=== PATIENT | female | born 1975 | race Caucasian/White ===

== ENCOUNTER 2017-06-13 08:47 | Day surgery (SDC) | payer OTHER ==
[~2017-06-13] VITALS: Ht 162.6 cm; Wt 99.5 kg
[~2017-06-13 08:47] MED LIST: ACEBUTCAFT PO; ACYC400 PO; BENZ100A; BENZ100A PO; BIRTH CONTROL PILLS; CEPH500 PO; Cheratussin AC118 ML; DRON5 PO; GUAI600T33 PO; HYDACE5 PO; IBUP400 PO; LEVFLO500 PO; LORA1 PO; MULVITMINE PO; OMEP10ER; OMEP40CA12 PO; ONDA8 PO; OXYACE5T PO; SERT25 PO; SULTRIDS PO; TRAZ50 PO; VITAMIN D2000 UNIT PO; VITAMIN D22000 UNIT PO
[2017-06-13] MEDS ORDERED: ESOM20 (09:22)
[2018-02-13] MEDS ORDERED: IBUP600 PO (23:58)
[2018-02-13] MEDS ORDERED: Norco 5-325 Ta1 EACH PO (23:58)
== END 2017-06-13 11:15 | disposition home or self-care (01) ==
LOC: ORSCSDS 08:47
PROVIDERS: Orthopaedic Surgery
PROC: 01N54ZZ Release Median Nerve, Percutaneous Endoscopic Approach (ICD-10-PCS; principal; 2017-06-13 10:00)
DX: G56.02 Carpal tunnel syndrome, left upper limb (principal)
CPT/HCPCS: J0171; J0690; J2250

== ENCOUNTER → 2018-12-09 | Outpatient (CLI) | payer OTHER ==
[~2018-12-09] MED LIST changes: +ESOM20; +IBUP600 PO; +Norco 5-325 Ta1 EACH PO
== END ==
LOC: LAB 13:58 → LAB SHORT 13:58
PROVIDERS: Nurse Practitioner
DX: Z01.419 Encounter for gynecological examination (general) (routine) without abnormal findings (principal)
CPT/HCPCS: G0145

== ENCOUNTER → 2019-05-06 | Outpatient (CLI) | payer OTHER ==
[2019-05-06 09:02] LABS: Source, Urine Clean Catch
[2019-05-06 09:07] LABS: BASOPHILS ABSOLUTE AUTO 0.04 K/mm3 (0.00-0.23); BASOPHILS PERCENT AUTO 1 % (0-2); EOSINOPHILS ABSOLUTE AUTO 0.08 K/mm3 (0.00-0.68); EOSINOPHILS PERCENT AUTO 1 % (0-6); Hematocrit 37.8 % (33.0-51.0); Hemoglobin 12.2 g/dL (11.5-16.0); IMMATURE GRAN ABSOLUTE AUTO 0.02 K/mm3 (0.00-0.10); IMMATURE GRAN PERCENT AUTO 0 % (0-1); LYMPHOCYTES ABSOLUTE AUTO 2.49 K/mm3 (0.84-5.20); LYMPHOCYTES PERCENT AUTO 36 % (21-46); MONOCYTES ABSOLUTE AUTO 0.54 K/mm3 (0.16-1.47); MONOCYTES PERCENT AUTO 8 % (4-13); Mean Corpuscular HGB 26.3 pg (26.0-34.0); Mean Corpuscular HGB Conc 32.3 g/dL (31.5-36.5); Mean Corpuscular Volume 82 fL (80-100); Mean Platelet Volume 9.8 fL (9.1-12.4); NEUTROPHILS PERCENT AUTO 55 % (41-73); Platelet Count 280 K/mm3 (150-400); RDW Coefficient Variation 15.9 % (11.7-14.2); RDW Standard Deviation 46.5 fL (35.1-46.3); Red Blood Cell Count 4.64 M/mm3 (3.80-5.20); White Blood Cell Count 6.97 K/mm3 (4.00-11.30)
[2019-05-06 09:16] LABS: Alanine Aminotransfer (ALT/SGP 38 U/L (12-78); Albumin, Blood 3.9 g/dL (3.4-5.0); Albumin/Globulin Ratio 0.9 (0.8-1.8); Alk Phos 114 U/L (40-126); Anion Gap 12 mmol/L (6-16); Aspartate Aminotrans (AST/SGOT 31 U/L (12-37); Bilirubin, Total 0.4 mg/dL (0.1-1.0); Blood Urea Nitrogen 14 mg/dL (8-24); Bun/Creatinine Ratio 17.5 (12.0-20.0); CO2, Blood 27 mmol/L (21-32); Chloride, Blood 101 mmol/L (98-108); Globulin, Blood 4.2 g/dL (2.2-4.0); Glomerular Filtration Rate >60 (60-); Glucose, Blood 111 mg/dL (70-99); Potassium, Blood 3.7 mmol/L (3.5-5.5); Sodium, Blood 140 mmol/L (136-145); Total Protein, Blood 8.1 g/dL (6.4-8.2)
[2019-05-06 09:28] LABS: Bacteria Mod /hpf; Red Blood Cells, Urine TNTC /hpf (0-2); Squamous Epithelial Cells Many /hpf (Few)
== END | disposition home or self-care (01) ==
LOC: LAB EV 08:59 → LAB SHORT 08:59
PROVIDERS: Physician Assistant
DX: R50.9 Fever, unspecified (principal)
CPT/HCPCS: 80053; 81015; 85025; 87040; 87086

== ENCOUNTER 2020-03-11 20:53 | Emergency (ER) | payer MEDICARE, OTHER ==
[~2020-03-11] VITALS: Ht 165.1 cm; Wt 97.5 kg
[2020-03-11 22:18] LABS: BASOPHILS ABSOLUTE AUTO 0.03 K/mm3 (0.00-0.23); BASOPHILS PERCENT AUTO 0 % (0-2); EOSINOPHILS ABSOLUTE AUTO 0.07 K/mm3 (0.00-0.68); EOSINOPHILS PERCENT AUTO 1 % (0-6); Hematocrit 39.2 % (33.0-51.0); Hemoglobin 12.4 g/dL (11.5-16.0); IMMATURE GRAN ABSOLUTE AUTO 0.04 K/mm3 (0.00-0.10); IMMATURE GRAN PERCENT AUTO 0 % (0-1); LYMPHOCYTES ABSOLUTE AUTO 2.95 K/mm3 (0.84-5.20); LYMPHOCYTES PERCENT AUTO 27 % (21-46); MONOCYTES ABSOLUTE AUTO 1.04 K/mm3 (0.16-1.47); MONOCYTES PERCENT AUTO 9 % (4-13); Mean Corpuscular HGB 25.6 pg (26.0-34.0); Mean Corpuscular HGB Conc 31.6 g/dL (31.5-36.5); Mean Corpuscular Volume 81 fL (80-100); Mean Platelet Volume 9.5 fL (9.1-12.4); NEUTROPHILS ABSOLUTE AUTO 6.99 K/mm3 (1.96-9.15); NEUTROPHILS PERCENT AUTO 63 % (41-73); Platelet Count 307 K/mm3 (150-400); RDW Coefficient Variation 14.6 % (11.7-14.2); RDW Standard Deviation 42.6 fL (35.1-46.3); Red Blood Cell Count 4.85 M/mm3 (3.80-5.20); White Blood Cell Count 11.12 K/mm3 (4.00-11.30)
[2020-03-11 22:40] LABS: Albumin, Blood 3.9 g/dL (3.4-5.0); Albumin/Globulin Ratio 0.9 (0.8-1.8); Bilirubin, Total 0.3 mg/dL (0.1-1.0); Bun/Creatinine Ratio 15.7 (12.0-20.0); Creatinine, Blood 1.15 mg/dL (0.40-1.00); Globulin, Blood 4.3 g/dL (2.2-4.0); Potassium, Blood 3.6 mmol/L (3.5-5.5); Total Protein, Blood 8.2 g/dL (6.4-8.2)
[2020-03-12] MEDS ORDERED: Percocet 5-3251 EACH PO (00:56)
== END 2020-03-12 01:05 | disposition home or self-care (01) ==
LOC: ER 20:53
PROVIDERS: Physician Assistant
DX: N20.0 Calculus of kidney (principal); Z88.8 Allergy status to other drugs, medicaments and biological substances; Z91.09 Other allergy status, other than to drugs and biological substances; Z91.018 Allergy to other foods; Z79.899 Other long term (current) drug therapy; Z87.891 Personal history of nicotine dependence
CPT/HCPCS: 36415; 80053; 85025; 96374; 96375; 99284-25; A9270; J1885; J2405

== ENCOUNTER → 2020-06-10 | Outpatient (CLI) | payer MEDICARE, OTHER ==
[~2020-06-10] MED LIST changes: +Percocet 5-3251 EACH PO
[2020-06-22 19:06] LABS: BRUSHITE 2.79 ratio (0.00-3.00); CALCIUM OXALATE 11.32 ratio (0.00-6.00); CALCIUM, URINE 31.7 mg/dL (Not Estab.); CHLORIDE URINE 194 (110-250); CITRIC ACID (CITRATE) 402 mg/L (Not Estab.); CITRIC ACID(CITRATE) 402 mg/24 hr (320-1240); MAGNESIUM, URINE 7.3 mg/dL (Not Estab.); MONOSODIUM URATE 5.73 ratio (0.00-4.00); OSMOLALITY, URINE 872 (300-900); SODIUM, URINE 171 (39-258); SODIUM, URINE 171 mmol/L (Not Estab.); STRUVITE 0.01 ratio (0.00-1.00); URINE VOLUME 1000 mL/24 hr (600-1600); URINE VOLUME (PRESERVATIVE) 1000 mL/24 hr (600-1600)
== END ==
LOC: LAB SHORT 10:00 → LAB 10:00 → LAB FUT 05-30 11:15
PROVIDERS: Urology
DX: N20.2 Calculus of kidney with calculus of ureter (principal)
CPT/HCPCS: 81003; 81050; 82131; 82140; 82340; 82436; 82507; 82570; 83735; 83935; 83945; 84105; 84133; 84300; 84392; 84560

== ENCOUNTER → 2021-08-17 | Outpatient (CLI) | payer MEDICARE, OTHER ==
[2021-08-18 16:11] LABS: HPV 16 Negative (Negative); HPV 18 Negative (Negative); HPV OTHER HR TYPES Negative (Negative)
== END | disposition home or self-care (01) ==
LOC: LAB SHORT 11:44 → LAB 11:44
PROVIDERS: Advanced Practice Midwife
DX: Z01.419 Encounter for gynecological examination (general) (routine) without abnormal findings (principal)
CPT/HCPCS: 87624; G0123

== ENCOUNTER 2021-08-21 13:29 | Emergency (ER) | payer OTHER, MEDICARE ==
[~2021-08-21] VITALS: Ht 162.6 cm; Wt 101.2 kg
[2021-08-21] MEDS ORDERED: IBUP600 PO (14:59)
== END 2021-08-21 15:11 | disposition home or self-care (01) ==
LOC: ER 13:29
DX: S63.286A Dislocation of proximal interphalangeal joint of right little finger, initial encounter (principal); Y33.XXXA Other specified events, undetermined intent, initial encounter; Z88.8 Allergy status to other drugs, medicaments and biological substances; Z91.018 Allergy to other foods; Z91.048 Other nonmedicinal substance allergy status; Z79.899 Other long term (current) drug therapy
CPT/HCPCS: 73130

== ENCOUNTER 2024-04-21 19:40 | Inpatient (IN) | payer MEDICARE, OTHER ==
[~2024-04-21] VITALS: Ht 162.6 cm; Wt 103.7 kg
[2024-04-21] MEDS ORDERED: Ketorolac Tromethamine 30mg Vial IV ONE (21:05)
[2024-04-21] MEDS ORDERED: NS 1,000 ML IV SCH (21:05)
[2024-04-21] MEDS ORDERED: Acetaminophen 500 MG Tab PO ONE (21:05)
[2024-04-21 21:31] LABS: BASOPHILS ABSOLUTE AUTO 0.02 K/mm3 (0.00-0.23); BASOPHILS PERCENT AUTO 0 % (0-2); EOSINOPHILS PERCENT AUTO 0 % (0-6); Hematocrit 34.9 % (33.0-51.0); Hemoglobin 11.4 g/dL (11.5-16.0); IMMATURE GRAN ABSOLUTE AUTO 0.05 K/mm3 (0.00-0.10); IMMATURE GRAN PERCENT AUTO 1 % (0-1); LYMPHOCYTES ABSOLUTE AUTO 0.36 K/mm3 (0.84-5.20); LYMPHOCYTES PERCENT AUTO 5 % (21-46); MONOCYTES ABSOLUTE AUTO 0.75 K/mm3 (0.16-1.47); MONOCYTES PERCENT AUTO 10 % (4-13); Mean Corpuscular HGB 27.1 pg (26.0-34.0); Mean Corpuscular HGB Conc 32.7 g/dL (31.5-36.5); Mean Corpuscular Volume 83 fL (80-100); Mean Platelet Volume 9.5 fL (9.1-12.4); NEUTROPHILS ABSOLUTE AUTO 6.38 K/mm3 (1.96-9.15); NEUTROPHILS PERCENT AUTO 84 % (41-73); Platelet Count 217 K/mm3 (150-400); RDW Standard Deviation 42.9 fL (35.1-46.3); Red Blood Cell Count 4.21 M/mm3 (3.80-5.20); White Blood Cell Count 7.56 K/mm3 (4.00-11.30)
[2024-04-21 21:57] LABS: Calcium, Blood 8.8 mg/dL (8.5-10.1); Creatinine, Blood 0.79 mg/dL (0.40-1.00); Potassium, Blood 3.5 mmol/L (3.5-5.5)
[2024-04-21] MEDS ORDERED: Melatonin 5 MG Tablet PO PRN (23:45)
[2024-04-21] MEDS ORDERED: Acetaminophen 325 MG TABLET PO PRN (23:45)
[2024-04-21] MEDS ORDERED: Albuterol 2.5 MG/3 ML VIAL INH PRN (23:45)
[2024-04-21] MEDS ORDERED: Ondansetron HCl 2 MG / ML 2ML Vial IV PRN (23:45)
[2024-04-21] MEDS ORDERED: FLU VACC TS2024-25(6MOS UP)/PF 45 MCG/0.5 ML SYRINGE IM ONE (23:45)
[2024-04-22 02:01] VITALS: BP 111/81
[2024-04-22 02:23] LABS: BASOPHILS ABSOLUTE AUTO 0.02 K/mm3 (0.00-0.23); BASOPHILS PERCENT AUTO 0 % (0-2); EOSINOPHILS PERCENT AUTO 0 % (0-6); Hematocrit 32.2 % (33.0-51.0); Hemoglobin 10.6 g/dL (11.5-16.0); IMMATURE GRAN ABSOLUTE AUTO 0.02 K/mm3 (0.00-0.10); IMMATURE GRAN PERCENT AUTO 0 % (0-1); LYMPHOCYTES ABSOLUTE AUTO 0.59 K/mm3 (0.84-5.20); LYMPHOCYTES PERCENT AUTO 9 % (21-46); MONOCYTES ABSOLUTE AUTO 0.76 K/mm3 (0.16-1.47); MONOCYTES PERCENT AUTO 12 % (4-13); Mean Corpuscular HGB 27.3 pg (26.0-34.0); Mean Corpuscular HGB Conc 32.9 g/dL (31.5-36.5); Mean Corpuscular Volume 83 fL (80-100); Mean Platelet Volume 9.4 fL (9.1-12.4); NEUTROPHILS ABSOLUTE AUTO 5.04 K/mm3 (1.96-9.15); NEUTROPHILS PERCENT AUTO 78 % (41-73); Platelet Count 197 K/mm3 (150-400); RDW Coefficient Variation 14.3 % (11.7-14.2); RDW Standard Deviation 43.1 fL (35.1-46.3); Red Blood Cell Count 3.88 M/mm3 (3.80-5.20); White Blood Cell Count 6.43 K/mm3 (4.00-11.30)
--- NOTE | 2024-04-22 02:40 | NUR ---
ADMIT NOTE 48 YR OLD FEMALE ADMITTED TO FLOOR FROM THE ED WITH DX OF FLU POSITIVE. ALERT AND ORIENTED. ON O2 2L/MIN PER NC. ROOM AIR IS HER BASE. EKG DONE SEE CHART. CAME IN WITH MOTHER, MOTHER LEFT. LUNG SOUNDS DIMINISHED PER AUSCULTATION. UP AD PERICO. ORIENTED TO USE OF CALL LIGHT. AGREES TO USE CALL LIGHT IF SOB, VERTIGO, ETC. HOB ELEVATED FOR COMFORT. ABLE TO REPOSITION SELF IN BED WITHOUT ASSISTANCE. CALL LIGHT IN REACH. PLACED ON DROPLET PRECAUTIONS.
--- NOTE | 2024-04-22 03:28 | NUR ---
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 ON DROPLET PRECAUTIONS. ALERT AND OREINTED. UP AD PERICO. LUNG SOUNDS DIMINISHED. ABLE TO REPOSITION SELF IN BED WITHOUT ASSIST. CALL LIGHT IN REACH, RAILS UP X 2 AND BED IN LOW POSITION FOR SAFETY. AGREES TO UES CALL LIGHT IF NEEDS ARISE. VSS. SATS WNL. HOB ELEVATED. WILL CONT TO MONITOR
[2024-04-22] MEDS ORDERED: Oseltamivir Phosphate 75 MG Cap PO SCH (05:20)
[2024-04-22 05:45] LABS: Percent Saturation 3.6 % (15.0-50.0)
[2024-04-22 07:21] LABS: Albumin, Blood 2.9 g/dL (3.4-5.0); Albumin/Globulin Ratio 0.7 (0.8-1.8); Bilirubin, Total 0.2 mg/dL (0.1-1.0); Bun/Creatinine Ratio 19.8 (12.0-20.0); Calcium, Blood 8.5 mg/dL (8.5-10.1); Creatinine, Blood 0.76 mg/dL (0.40-1.00); Potassium, Blood 3.3 mmol/L (3.5-5.5); Total Protein, Blood 6.9 g/dL (6.4-8.2)
[2024-04-22 08:00] VITALS: BP 109/77
[2024-04-22] MEDS ORDERED: Enoxaparin 40 MG/0.4 ML SYR SC SCH (09:00)
[2024-04-22] MEDS ORDERED: EC-NAPROSYN500 MG PO (12:30)
[2024-04-22] MEDS ORDERED: OMEP20ER PO (12:31)
[2024-04-22] MEDS ORDERED: VALA500 PO (12:32)
[2024-04-22] MEDS ORDERED: Ferrous Sulfate 325 MG Tab PO SCH (13:00)
--- NOTE | 2024-04-22 14:19 | NUR ---
FAMILY VISITING THROUGH OUT THE DAY, IN SHOWER NOW WITH OXYGEN ON, FAMILY HELPFUL AT BEDSIDE, CLEARLY MAKES NEEDS KNOWN, CALL LIGHT WITH IN REACH
[2024-04-22 15:32] VITALS: BP 114/70
--- NOTE | 2024-04-22 18:06 | NUR ---
NO ACUTE CHANGES, NEGATIVE DOPLER FOR PE, DR KEYS ROUNDED, 2LO2 VIA NC, SHOWERED TODAY, ENCOURAGED DEEP BREATHING, STARTED IS USE. INDEPENDANT IN ROOM, SATS ON 2L O2 93-98%, SHALLOW SLOW RESPIRATIONS, ENCOURAGED DEEP BREATHING AND COUGH. CALL LIGHT WITH IN REACH, WILL RELAY TO PM RN
[2024-04-22 20:06] VITALS: BP 135/88
[2024-04-22] MEDS ORDERED: GuaiFENesin 600 MG TabCR PO SCH (21:00)
[2024-04-23 03:25] VITALS: BP 109/72
--- NOTE | 2024-04-23 03:48 | NUR ---
SHIFT SUMMARY PT CONTINUES ON CONTACT ISOLATION D/T DX OF INFLUENZA A. PT IS ABLE TO MAKE HER NEEDS KNOWN, AND COOPERATIVE WITH CARE. @HS T. 101.4, PRN TYLENOL PO EFFECTIVE, RETAKE T.99.0. INTERMITTENT NON-PRODUCTIVE COUGH NOTED T/O THIS SHIFT. LUNGS DIMINISHED T/O PER AUSCULTATION. @HS PT C/O BODY ACHES, TYLENOL PRN EFFECTIVE PER PT REPORT. NO ACUTE EVENTS DURING THIS SHIFT. O2 @ 2L VIA NASAL CANNULA, O2 SAT'S>97%, PT DENIES SOB. BED AT THE LOWEST POSITION, CALL LIGHT W/I REACH.
[2024-04-23] MEDS ORDERED: Omeprazole 20 MG CapCR PO SCH (06:00)
[2024-04-23 08:16] VITALS: BP 106/71
[2024-04-23] MEDS ORDERED: Cholecalciferol 1000 Unit Tablet (=25MCG) PO SCH (09:00)
[2024-04-23] MEDS ORDERED: OSEL75CA PO (12:32)
[2024-04-23] MEDS ORDERED: NYSTATIN15 GM TOP (13:03)
[2024-04-23] MEDS ORDERED: Nystatin 100,000 Unit/GM CREAM 15 GM TOP SCH (21:00)
== END 2024-04-23 13:46 | disposition home or self-care (01) | DRG 193 ==
LOC: ER 19:40 → ERHOLD 19:41 → MEDS 19:41
PROVIDERS: Student in an Organized Health Care Education/Training Program; ADMIT Student in an Organized Health Care Education/Training Program
DX: J10.1 Influenza due to other identified influenza virus with other respiratory manifestations (principal); J96.01 Acute respiratory failure with hypoxia; Z94.84 Stem cells transplant status; B37.89 Other sites of candidiasis; L30.8 Other specified dermatitis; K44.9 Diaphragmatic hernia without obstruction or gangrene; K21.9 Gastro-esophageal reflux disease without esophagitis; E66.9 Obesity, unspecified; D50.9 Iron deficiency anemia, unspecified; Z85.72 Personal history of non-Hodgkin lymphomas; Z90.89 Acquired absence of other organs; Z87.442 Personal history of urinary calculi; Z79.899 Other long term (current) drug therapy; Z87.891 Personal history of nicotine dependence; Z91.048 Other nonmedicinal substance allergy status; Z88.8 Allergy status to other drugs, medicaments and biological substances; Z91.018 Allergy to other foods; Z79.891 Long term (current) use of opiate analgesic; Z99.81 Dependence on supplemental oxygen; Z90.710 Acquired absence of both cervix and uterus; Z98.890 Other specified postprocedural states; Z68.39 Body mass index [BMI] 39.0-39.9, adult
CPT/HCPCS: 36415; 71046; 71260; 80048; 80053; 82607; 82728; 82746; 83540; 83550; 84484; 85025; 85379; 93005; 93010; 93970; 94760; 96361; 96372; 96374; 99285-25; A9270; G0378; J1650; J1885; J7030; Q9967